=== PATIENT | female | born 2005 | race Two or more races ===

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

== ENCOUNTER 2025-01-02 00:52 | Emergency (ER) | payer MEDICAID, SELFPAY ==
[2025-01-02 01:13] VITALS: BP 120/75; PULSE 58; RESP 16; TEMP 37; O2SAT 98
[2025-01-02] MEDS: HYDROcodone/APAP 5/325 TABLET 1 TAB PO (01:50)
--- NOTE | 2025-01-02 01:52 | EDNOTE_ITS ---
ED Dental RME/HPI General Chief complaint: Dental/Oral/Throat Stated complaint: DENTAL PAIN Time Seen by Provider: 01/02/25 01:12 Arrival date/time: 01/02/25 00:52 This is a case of 19-year-old female with no medical history came in in the emergency room due to right lower dental pain for 3 days worsening of the symptoms this patient decided to sought consult here in the emergency room patient denies Limitations: no limitations Related Data Previous Rx's ?Medication ?Instructions ?Recorded cephalexin 500 mg capsule 500 mg PO QID #40 caps 01/02 hydrocodone 5 mg-acetaminophen 325 1 tab PO Q6H PRN pa in #12 tabs 01/02/25 mg tablet Allergies Allergy/AdvReac Type Severity Reaction Status Date / Time No Known Allergies Allergy Verified 01/02/25 00:53 Review of Systems Constitutional Constitutional: Reports system reviewed and no additional complaints, except as documented and Reports as per HPI ENT Ears, Nose, Mouth, and Throat: Reports system reviewed and no additional complaints, except as documented, Reports as per HPI and Reports dental pain Cardiovascular Cardiovascular: Reports system reviewed and no additional complaints, except as documented and Reports as per HPI Respiratory Respiratory: Reports system reviewed and no additional complaints, except as documented Gastrointestinal Gastrointestinal: Reports system reviewed and no additional complaints, except as documented and Reports as per HPI Musculoskeletal Musculoskeletal: Reports system reviewed and no additional complaints, except as documented and Reports as per HPI Neurologic Neurologic: Reports system reviewed and no additional complaints, except as documented and Reports as per HPI Past Medical History Social History SMOKING STATUS: Current every day smoker ED Exam General Limitations: Present no limitations General appearance: Present alert, in no apparent distress and other (Patient is awake alert oriented not in distress nontoxic looking well-hydrated well- nourished) Head Head exam: Present atraumatic, normocephalic and normal inspection Eye Eye exam: Present normal appearance, PERRL and EOMI ENT ENT exam: Present normal exam, normal oropharynx, mucous membranes moist and other (ENT exam is normal and unremarkable) Expanded ENT Exam Teeth numbered: 2 1. Dental Tenderness (Noted tenderness on tooth #32 and tooth #31 mild gum swelling and redness but no abscess no cellulitis) 2. Other (No fractured tooth no tooth avulsion) Throat exam: Present tonsillar erythema, tonsillomegaly and tonsillar exudate Neck Neck exam: Present normal inspection, full ROM and trachea midline; Absent tenderness, meningismus, lymphadenopathy or thyromegaly Chest Chest inspection: Present normal inspection and symmetric chest wall rise; Absent tenderness Respiratory Respiratory exam: Present normal lung sounds bilaterally; Absent respiratory distress, wheezes, stridor, accessory muscle use or prolonged expiratory phase Cardiovascular Cardiovascular exam: Present regular rate, normal rhythm and normal heart sounds; Absent bradycardia, tachycardia, irregular rhythm, systolic murmur or diastolic murmur Abdominal Exam Abdominal exam: Present soft and normal bowel sounds Extremities Exam Extremities exam: Present normal inspection and full ROM Back Exam Back exam: Present normal inspection and full ROM Neurological Exam Neurological exam: Present alert, oriented X3, CN II-XII intact, normal gait and reflexes normal; Absent motor sensory deficit Psychiatric Psychiatric exam: Present normal affect and normal mood Skin Skin exam: Present warm, dry, intact and normal color Course Quality Measures none Orders Category Date Time Status HYDROcodone*/APAP 5/325 [[place] 5/325] Med 01/02/25 01:35 Discontinued 1 tab PO X1 ONE cephALEXin [Keflex] Med 01/02/25 01:35 Discontinued 500 mg PO X1 ONE Vital Signs Vital signs: Vital Signs Temperature 98.6 F 01/02/25 01:13 Pulse Rate 58 L 01/02/25 01:13 Respiratory Rate 16 01/02/25 01:13 Blood Pressure 120/75 01/02/25 01:13 Pulse Oximetry (%) 98 01/02/25 01:13 Oxygen Delivery Method Room Air 01/02/25 01:13 Oxygen saturation is 98% in room air Dental / Oral MDM Narrative MDM Narrative:: This is a case of 19-year-old female with no medical history came in in the emergency room due to right lower dental pain for 3 days worsening of the symptoms this patient decided to sought consult here in the emergency room patient denies physical examination patient is awake alert oriented not in distress nontoxic looking well-hydrated well-nourished HEENT exam is normal except tooth #32 and tooth #31 mild tender when touched with tongue depressor with mild gum swelling and redness but no abscess no cellulitis no tooth avulsion no tooth fracture no dental caries based on my physical examination and history patient symptoms suggestive of tooth infection versus tooth abscess patient was given cephalexin and [place] which improved the patient condition and pain patient will follow-up with PCP in 2 days for reevaluation she also needs to see an dentist in 2 days for reevaluation and possible dental procedure for any worsening symptoms or any emergent concern return precaution in the ER was advised no signs and symptoms of Tony's angina Patient was discharged with comfortable condition walking with stable gait. Patient verbalized no further complains explained diagnosis and answered patient question. Patient is comfortable with the proposed management plan including the need to follow up with his/her primary care physician and any specialist if applicable Discussed patient for any urgent condition or worsening sx, He/She needed to go to emergency room immediately or call 911. Patient acknowledge the responsibility to follow up as instructed and to monitor her/his symptoms. For any persistence of the symptoms for more than 3-5 days return precaution advised. Discussed the result of the test and was given printed discharge instruction Patient data External records reviewed:: [facility] previous records Clinical information provided by:: patient Social determinants that could affect healthcare access:: none Patient has the following chronic illnesses:: None How is presenting disease/condition affected by chronic disease/condition?: no chronic disease Evaluation data The following diagnostics were reviewed and interpreted by me:: other (specify) Lab and/or radiology exams considered but not ordered:: None Interpretation Summary: None Medications / Prescriptions Medications or Prescriptions considered but not ordered:: Given Medication administrations:: Medication Administration History Discontinued Medications Hydrocodone Bitart/Acetaminophen (Hydrocodone/Apap 5/325 Tablet) 1 tab PO X1 ONE Stop: 01/02/25 01:36 Last Admin: 01/02/25 01:50 Dose: 1 tab Documented By: CVL Cephalexin HCl (Cephalexin 250 Mg Capsule) 500 mg PO X1 ONE Stop: 01/02/25 01:36 Last Admin: 01/02/25 01:51 Dose: 500 mg Documented By: CVL Given Consultations Consultation(s) initiated? (list below): No Diagnosis Dental Differential Diagnosis: dental caries, toothache, dental abscess and other (Tooth abscess tooth infection) Most likely diagnosis given after review of the tests above:: Tooth infection Admission Indicated Admission indicated?: not indicated Explain why admission is indicated or not indicated:: Not indicated Admission Request Was there a request for admission?: No Admission Attestation Admission request attestation: Not indicated Disposition Plan Disposition Plan: Discharge Discharge Attestation Discharge Attestation: The patient and all family members were given an opportunity to ask questions and understood the discharge instructions. Discharge instructions specifically effects, indications for sooner follow up or return to the emergency department, and the expected course of current diagnosis. Patient condition: Stable Discharge Plan Plan Patient Disposition: HOME (Self Care) Patient condition on transfer: Stable Prescriptions/Referrals Prescriptions/Med Rec: New cephalexin 500 mg capsule 500 mg PO QID Qty: 40 0RF hydrocodone-acetaminophen 5-325 mg tablet 1 tab PO Q6H MDD max 4 tabs per day PRN (Reason: pain) Qty: 12 0RF Problem List Clinical Impression: Tooth infection Patient/Caregiver Discharge Instructions Education Materials: ED Tooth Abscess Additional Instructions: Follow-up with your primary care physician in 2 days for reevaluation it is very important to see your dentist in 2 days for reevaluation and possible dental procedure worsening symptoms or any emergent concern return to the emergency room immediately or call 911 take your medication as directed finish the course of antibiotic oral care is advsied Print Language: Tajik Stand Alone Forms: [employer] Award Info., Patient Portal Info Letter PA/[employer] Supervising Physician PA/KASSIE Supervising Physician: Dr. Ring
[2025-01-02 02:20] VITALS: RESP 18
== END 2025-01-02 02:20 | disposition home or self-care (01) ==
PROVIDERS: Emergency Provider Emergency Medicine
DX: K04.7 Periapical abscess without sinus (principal)
CPT/HCPCS: 99283; A9270

== ENCOUNTER → 2025-03-04 | Outpatient (CLI) | payer MEDICAID, SELFPAY ==
--- NOTE | 2025-03-04 10:30 | XR_ITS ---
Examination: Breast ultrasound complete, bilateral Date and time of exam: March 04, 2025, 1022 hours INDICATIONS: Nipple discharge 3 weeks Technique: Real-time grayscale ultrasonographic imaging bilateral breasts, including all 4 quadrants as well as nipple retroareolar and axillary regions. Findings: No cystic or solid mass involving either breast IMPRESSION: BI-RADS Category 1: Negative studies
== END | disposition home or self-care (01) ==
PROVIDERS: Referring Provider Student in an Organized Health Care Education/Training Program; Visit Provider Student in an Organized Health Care Education/Training Program
DX: N64.4 Mastodynia (principal); N64.52 Nipple discharge
CPT/HCPCS: 76641